=== PATIENT | male | born 1960 | race Caucasian/White ===

== ENCOUNTER 2017-11-24 18:44 | Emergency (ER) | payer SELFPAY ==
[2017-11-24 18:49] VITALS: BP 112/67; PULSE 88; TEMP 98; BMI 24.4
--- NOTE | 2017-11-24 20:10 | PDOC ---
History of Present Illness - General Chief Complaint: Pain, Acute Stated Complaint: STOMACH PAIN Time Seen by Provider: 11/24/17 19:43 - History of Present Illness Initial Comments: 11/24/17 20:00 CHIEF COMPLAINT: abdominal pain HISTORY OF PRESENT ILLNESS: 57 yo M with no known medical history (has not seen a PCP in "years") presents to ED with intermittent abdominal and R sided flank pain x "3-4 weeks." He states that the pain is intermittent and "just happens sometimes when I stand up." Patient also reports self-diagnosed b/l inguinal hernias and reports he has "sudden burning sensation to the right groin that come and goes." Patient also reports cough x 1 week with fever for 1 day approximately 5 days ago, now resolve. He denies any nausea, vomiting, diarrhea , rectal bleeding. PAST MEDICAL HISTORY: Denies past medical history FAMILY HISTORY: Denies SOCIAL HISTORY: Denies tobacco, alcohol, illicit drug use. SURGICAL HISTORY: Denies ALLERGIES: No known drug allergies REVIEW OF SYSTEMS General/Constitutional: Fever for one day, now resolved. Denies weakness, weight change. HEENT: Denies change in vision. Denies ear pain or discharge. Denies sore throat. Cardiovascular: Denies chest pain or shortness of breath. Respiratory: Cough x 1 week. Denies wheezing, or hemoptysis. Gastrointestinal: Intermittent epigastric abdominal pain, none at this time. Denies nausea, vomiting, diarrhea or constipation. Denies rectal bleeding. Genitourinary: Denies dysuria, frequency, or change in urination. Musculoskeletal: Intermittent R flank pain, none at this time. Denies joint or muscle swelling or pain. Denies neck or back pain. Skin: Denies rash. Neurologic: Denies headache, vertigo, loss of consciousness, or loss of sensation. PHYSICAL EXAM General Appearance: Well-appearing, appropriately dressed. No apparent distress. HEENT: EOMI, PERRLA. No conjunctival pallor. No photophobia, scleral icterus. Respiratory/Chest: Persistent dry cough. Lungs CTAB. No shortness of breath, chest tenderness, respiratory distress, accessory muscle use. No crackles, rales , rhonchi, stridor, wheezing, dullness Cardiovascular: RRR. S1, S2. Gastrointestinal/Abdominal: B/l inguinal hernias, larger on L side. Normal bowel sounds. Abdomen soft, non-distended. No tenderness or rebound tenderness. No organomegaly, pulsatile mass, guarding, hernia, hepatomegaly, splenomegaly. Musculoskeletal/Extremities: Normal inspection. FROM of all extremities, normal capillary refill. Pelvis Stable. No CVA tenderness. No tenderness to extremities, pedal edema, swelling, erythema or deformity. Integumentary: Appropriate color, dry, warm. No cyanosis, erythema, jaundice or rash Neurologic: controls operator molded goods II-XII intact. Fully oriented, alert. Appropriate mood/affect. Motor strength 5/5. No appreciable EOM palsy, facial droop or sensory deficit. 11/24/17 23:47 Past History - Past Medical History Allergies/Adverse Reactions: Allergies Allergy/AdvReac Type Severity Reaction Status Date / Time No Known Allergies Allergy Verified 11/24/17 18:45 Home Medications: Ambulatory Orders NK [No Known Home Medication] 11/24/17 COPD: No - Suicide/Smoking/Psychosocial Hx Smoking History: Current every day smoker Have you smoked in the past 12 months: Yes Number of Cigarettes Smoked Daily: 50 Information on smoking cessation initiated: Yes 'Breaking Loose' booklet given: 11/24/17 Hx Alcohol Use: No Drug/Substance Use Hx: No Substance Use Type: None *Physical Exam - Vital Signs Last Vital Signs Temp Pulse Resp BP Pulse Ox 98.0 F 88 18 112/67 100 11/24/17 18:45 11/24/17 18:45 11/24/17 18:45 11/24/17 18:45 11/24/17 18:45 ED Treatment Course - LABORATORY CBC & Chemistry Diagram: 11/24/17 20:10 11/24/17 20:10 Medical Decision Making - Medical Decision Making 11/24/17 20:10 57 yo M with no known medical history (has not seen a PCP in "years") presents to ED with intermittent abdominal pain x "3-4 weeks." -CBC, CMP, lipase -flu swab -EKG -Toradol IV 11/24/17 21:12 EKG - sinus rhythm with occasional premature ventricular complexes UA positive for 1+ blood. Will order spiral CT r/o kidney stones. Patient reassessed; at this time patient states he "feels fine" and has no pain other than when he coughs and feels pain to his abdomen. Patient is concerned "this is related to my hernias." Patient refused Toradol, states "why have it on board if I can handle the pain. " . 11/24/17 23:35 CT FINDINGS: The kidneys are normal in size without hydronephrosis, nephrolithiasis or perinephric stranding. There are no stones seen along the course of the ureters or within the bladder. The liver is enlarged measuring 20 cm in craniocaudal dimension with focal area of decreased attenuation in the left lobe along the fissure for the falciform ligament compatible with focal fat infiltration The gallbladder is decompressed The unenhanced spleen, pancreas and adrenal glands are grossly normal Small umbilical hernia containing fat The stomach is moderately distended with debris There is no bowel distention A normal appendix is visualized Colonic diverticulosis predominantly left colon without evidence of acute diverticulitis There is a large left inguinal hernia containing a loop of sigmoid colon without evidence of obstruction A small right inguinal hernia contains fat only No intra-abdominal free air, free fluid or loculated collections Read by: Martín Gómez MD Advised patient to establish care with PCP and cardiology. Advised patient to follow up with GI re: fatty liver disease and discuss elective hernia repair. Patient states Dr. 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 *DC/Admit/Observation/Transfer Diagnosis at time of Disposition: Fatty liver, Diverticulosis of colon, Umbilical hernia without obstruction or gangrene Inguinal hernia Qualifiers: Obstruction and gangrene presence: without obstruction or gangrene Laterality: bilateral Recurrence: not specified as recurrent Qualified Code(s): K40.20 - Bilateral inguinal hernia, without obstruction or gangrene, not specified as recurrent - Discharge Dispostion Disposition: HOME Condition at time of disposition: Stable Admit: No - Referrals - Patient Instructions Printed Discharge Instructions: DI for Groin Hernia, Nonalcoholic Fatty Liver Disease, DI for Diverticulosis, DI for Ventral Hernia Additional Instructions: As discussed, you must follow up with a primary care doctor for continued healthcare management. Follow up with your press operator printing at [place] as discussed. Please also follow up with a county agricultural agent for continued monitoring of your fatty liver disease and hernias. If you develop any severe pain or skin changes to the sites of your hernias, worsening abdominal pain with fever, chills, vomiting, or diarrhea, or any new or worsening symptoms, please return to the ER. - Post Discharge Activity
[2017-11-24 20:19] LABS: BASO % 0.4 % (0-2.0); EOS % 2.8 % (0-4.5); HEMATOCRIT 45.7 % (35.4-49); HEMOGLOBIN 15.2 GM/dL (11.7-16.9); LYMPH % 25.4 % (8-40); MCH 28.6 pg (25.7-33.7); MCHC 33.2 g/dl (32.0-35.9); MEAN CELL VOLUME 86.2 fl (80-96); MEAN PLT VOLUME 9.7 fl (7.5-11.1); MONO % 8.8 % (3.8-10.2); NEUT % 62.6 % (42.8-82.8); PLATELET COUNT 200 K/MM3 (134-434); RBC 5.31 M/mm3 (4.00-5.60); RDW 13.8 % (11.9-15.9); WHITE BLOOD COUNT 9.3 K/mm3 (4.0-10.0)
[2017-11-24] MEDS ORDERED: KETOROLAC TROMETHAMINE 30 MG/1 ML VIAL IVPUSH ONE (20:41)
[2017-11-24 20:47] LABS: ALBUMIN 3.6 g/dl (3.4-5.0); ANION GAP 7 (8-16); BLOOD UREA NITROGEN 17 mg/dL (7-18); CALCIUM 8.8 mg/dL (8.5-10.1); CHLORIDE 105 mmol/L (98-107); CO2 27 mmol/L (21-32); GLUCOSE,RANDOM 97 mg/dL (74-106); POTASSIUM 4.3 mmol/L (3.5-5.1); SGOT/AST 10 U/L (15-37); SGPT/ALT 21 U/L (12-78); SODIUM 139 mmol/L (136-145)
[2017-11-24 20:49] LABS: URINE APPEARANCE CLEAR; URINE BILIRUBIN NEGATIVE (NEGATIVE); URINE BLOOD 1+ (NEGATIVE); URINE COLOR YELLOW; URINE GLUCOSE (UA) NEGATIVE (NEGATIVE); URINE KETONE TRACE (NEGATIVE); URINE LEUK ESTERASE NEGATIVE (NEGATIVE); URINE NITRITE NEGATIVE (NEGATIVE); URINE PROTEIN NEGATIVE (NEGATIVE)
[2017-11-24 20:50] LABS: ALK PHOS 63 U/L (45-117); BILIRUBIN,TOTAL 0.3 mg/dL (0.2-1.0); TOT PROT 6.6 g/dl (6.4-8.2)
[2017-11-24 20:57] LABS: URINE HYALINE CAST 1 /lpf; URINE MUCUS FEW
[2017-11-24] MEDS ORDERED: KETOROLAC TROMETHAMINE 30 MG/1 ML VIAL ONE (21:11)
[2017-11-24] MEDS ORDERED: SODIUM CHLORIDE 0.9% 1000 ML INFUS.BAG IV ONE (21:32)
--- NOTE | 2017-11-25 16:07 | EKG ---
Test Reason : Blood Pressure : / mmHG Vent. Rate : 088 BPM Atrial Rate : 088 BPM P-R Int : 156 ms QRS Dur : 088 ms QT Int : 394 ms P-R-T Axes : 067 -04 050 degrees QTc Int : 476 ms SINUS RHYTHM WITH OCCASIONAL PREMATURE VENTRICULAR COMPLEXES OTHERWISE NORMAL ECG NO PREVIOUS ECGS AVAILABLE Confirmed by Nicola Bell ([id number]) on 11/25/2017 4:06:36 PM Referred By: Confirmed By:Nicola Bell
== END 2017-11-24 23:51 | disposition home or self-care (01) ==
LOC: JER 18:44
PROC: 3E0333Z Introduction of Anti-inflammatory into Peripheral Vein, Percutaneous Approach (ICD-10-PCS; principal; 2017-11-24)
DX: K40.20 Bilateral inguinal hernia, without obstruction or gangrene, not specified as recurrent (principal); K42.9 Umbilical hernia without obstruction or gangrene; K57.90 Diverticulosis of intestine, part unspecified, without perforation or abscess without bleeding; K76.0 Fatty (change of) liver, not elsewhere classified
CPT/HCPCS: 36415; 74176; 80053; 81003; 81015; 83690; 85025; 87086; 87804; 93005; 93010; 99283-25

== ENCOUNTER 2019-02-07 20:57 | Observation (INO) | payer OTHER ==
--- NOTE | 2019-02-07 22:01 | PDOC ---
History of Present Illness - General History Source: Patient Exam Limitations: No Limitations - History of Present Illness Initial Comments: 02/07/19 22:20 The patient is a 58 year old male with a significant past medical history of bilateral hernia removal who presents to the emergency department with 1 week of weakness and onset pelvic pain. The patient states he went to urgent care 2 days ago, was prescribed Z Pack (non compliant) and had an EKG done. The patient states he endorsed his pelvic pain while playing tennis and he feels like sleeping all day. The patient notes he had 3 episodes of vomiting with his last episode at 6mp tonight. The patient endorses decreased urinary flow and burning pain during urination which he describes as someone burning a cigarette on the area. Family history: Maternal parent had Afib before passing. The patient denies fever, chills, nausea, diarrhea or constipation. The patient denies frequency, urgency or hematuria. Allergies: NKDA Social history: Current everyday smoker (half a pack a day). Occasional alcohol use. PCP: hasn't seen in years <Parmjit Mariscal - Last Filed: 02/07/19 22:34> <Sakina Hoffman - Last Filed: 02/08/19 20:32> - General Chief Complaint: Weakness Stated Complaint: WEAKNESS Time Seen by Provider: 02/07/19 21:39 Past History <Parmjit Mariscal - Last Filed: 02/07/19 22:34> - Past Medical History COPD: No - Suicide/Smoking/Psychosocial Hx Smoking History: Unknown if ever smoked Have you smoked in the past 12 months: No Number of Cigarettes Smoked Daily: 50 Information on smoking cessation initiated: No 'Breaking Loose' booklet given: 11/24/17 Hx Alcohol Use: No Drug/Substance Use Hx: No Substance Use Type: None <Sakina Hoffman - Last Filed: 02/08/19 20:32> - Past Medical History Allergies/Adverse Reactions: Allergies Allergy/AdvReac Type Severity Reaction Status Date / Time No Known Allergies Allergy Verified 02/07/19 21:03 Home Medications: Ambulatory Orders NK [No Known Home Medication] 11/24/17 Review of Systems - Review of Systems Able to Perform ROS?: Yes Comments:: 02/07/19 22:22 GENERAL/CONSTITUTIONAL:(+) weakness. No fever or chills. HEAD, EYES, EARS, NOSE AND THROAT: No change in vision. No ear pain or discharge. No sore throat. CARDIOVASCULAR: No chest pain or shortness of breath. RESPIRATORY: No cough, wheezing, or hemoptysis. GASTROINTESTINAL:(+) vomiting. No nausea, diarrhea or constipation. GENITOURINARY:(+)dysuria.(+) decreased urinary flow. No frequency. MUSCULOSKELETAL: (+) pelvic pain. No joint or muscle swelling or pain. No neck or back pain. SKIN: No rash NEUROLOGIC: No headache, vertigo, loss of consciousness, or change in strength/ sensation. ENDOCRINE: No increased thirst. No abnormal weight change. HEMATOLOGIC/LYMPHATIC: No anemia, easy bleeding, or history of blood clots. ALLERGIC/IMMUNOLOGIC: No hives or skin allergy. <Parmjit Mariscal - Last Filed: 02/07/19 22:34> *Physical Exam - Vital Signs Last Vital Signs Temp Pulse Resp BP Pulse Ox 98.6 F 86 20 131/76 98 02/07/19 21:03 02/07/19 21:03 02/07/19 21:03 02/07/19 21:03 02/07/19 21:03 - Physical Exam Comments: 02/07/19 22:23 GENERAL: Awake, alert, and fully oriented, in no acute distress HEAD: No signs of trauma EYES: PERRLA, EOMI, sclera anicteric, conjunctiva clear ENT: Auricles normal inspection, hearing grossly normal, nares patent, oropharynx clear without exudates. Moist mucosa NECK: Normal ROM, supple, no lymphadenopathy, JVD, or masses LUNGS: Breath sounds equal, clear to auscultation bilaterally. No wheezes, and no crackles HEART: Regular rate and rhythm, normal S1 and S2, no murmurs, rubs or gallops ABDOMEN: (+) enlarged L sided inguinal hernia. (+)Left scrotum the size of a grapefruit.(+) Surrounding yeast infection on L inner thigh. Soft, nontender, normoactive bowel sounds. No guarding, no rebound. No masses EXTREMITIES: (+)Right upper back pain protruding deformity. Normal range of motion, no edema. No clubbing or cyanosis. No cords, erythema, or tenderness NEUROLOGICAL: Cranial nerves II through XII grossly intact. Normal speech, normal gait SKIN: Warm, Dry, normal turgor, no rashes or lesions noted. <Parmjit Mariscal - Last Filed: 02/07/19 22:34> - Vital Signs Last Vital Signs Temp Pulse Resp BP Pulse Ox 98.6 F 86 20 131/76 98 02/07/19 21:03 02/07/19 21:03 02/07/19 21:03 02/07/19 21:03 02/07/19 21:03 <Sakina Hoffman - Last Filed: 02/08/19 20:32> ED Treatment Course - LABORATORY CBC & Chemistry Diagram: 02/07/19 22:37 02/07/19 22:37 <Sakina Hoffman - Last Filed: 02/08/19 20:32> Medical Decision Making - Medical Decision Making 02/07/19 22:26 Pt has enlarged left scrotum; states that scrotum is larger than usual; states that he has decreasaed his PO intake and that when he eats, he is now vomiting. Pt has large ingunal hernia into the left scrotum. We will get a sono and a CT scan as needed. 02/08/19 00:39 Pt's chem is pending. If Bun/Cr are noraml I will get a CT scan with IV contrast to image the inguinal hernia. 02/08/19 01:55 Patient Name: PHAN DOMINGO THIS IS A PRELIMINARY REPORT FROM [facility] UNCLAIMED PROPERTY MANAGER DATE OF SERVICE: 2019-02-08 00:05:49 IMAGES: [id number] EXAM: Scrotal ultrasound with Doppler study of the bilateral testicles. HISTORY: Red swollen left testicle COMPARISON: None. FINDINGS: Right side: The right testicle and epididymis are homogeneous. No focal lesions are identified. There is positive arteriovenous Doppler blood flow to the right testicle. There are 2 right epididymal cysts measuring 3.2 mm and 2.5 mm respectively. There is a right hydrocele. Left side: The left testicle is homogeneous. No focal lesions are identified. There is positive arteriovenous Doppler blood flow to the left testicle. There is increased vascularity to the inferior portion of the left testicle. Given that the patient has a swollen left scrotum, the possibility of left orchitis is a consideration. However it not definitive on this scan. There is a left hydrocele as well as a left varicocele. (Limitation left side: Epididymal body not visualized). Note also made of a left inguinal hernia. Consider the possibility that swollen testicle is due to the hernia. CT would be helpful to evaluate for bowel obstruction due to the hernia. Impression: Left inguinal hernia. Further evaluation recommended as described above. Right hydrocele. Right epididymal cysts. Left hydrocele. Left varicocele. Some increased vascularity of the inferior left testicle relative to the right. Could represent infection but uncertain. THIS DOCUMENT HAS BEEN ELECTRONICALLY SIGNED 02/08/19 04:34 Patient Name: PHAN DOMINGO THIS IS A PRELIMINARY REPORT FROM [facility]CLAIMED PROPERTY MANAGER DATE OF SERVICE: 2019-02-08 02:33:32 IMAGES: [id number] EXAM: CT abdomen and pelvis with contrast HISTORY: Rule out inguinal hernia COMPARISON: None. FINDINGS Positive for a left inguinal hernia containing a loop of left/sigmoid colon. The hernia is incompletely included on the scan. However it is nonobstructing. There is also a right inguinal hernia containing no bowel. No large or small bowel obstruction. No free intraperitoneal air or free fluid. Negative for diverticulitis or colitis. Normal appendix. Normal liver. Contracted gallbladder. Normal spleen. Normal pancreas. Normal adrenal glands. Normal kidneys urinary tracts and urinary bladder. Osseous structures are intact. Impression: Nonobstructing left inguinal hernia. Otherwise no acute intra-abdominal abnormalities 02/08/19 20:32 Admitted for med surg obs. <Sakina Hoffman - Last Filed: 02/08/19 20:32> *DC/Admit/Observation/Transfer - Attestations Scribe Attestion: 02/07/19 22:24 Documentation prepared by Parmjit Mariscal, acting as medical scheduler for Sakina Hoffman MD <Parmjit Mariscal - Last Filed: 02/07/19 22:34> - Discharge Dispostion Decision to Admit order: Yes <Sakina Hoffman - Last Filed: 02/08/19 20:32> Diagnosis at time of Disposition: Inguinal hernia, Vomiting - Discharge Dispostion Disposition: HOME Condition at time of disposition: Guarded
[2019-02-07 22:57] LABS: BASO % 0.9 % (0-2.0); EOS % 3.7 % (0-4.5); HEMATOCRIT 43.5 % (35.4-49); HEMOGLOBIN 14.7 GM/dL (11.7-16.9); LYMPH % 21.8 % (8-40); MCH 29.6 pg (25.7-33.7); MCHC 33.7 g/dl (32.0-35.9); MEAN CELL VOLUME 87.7 fl (80-96); MEAN PLT VOLUME 9.3 fl (7.5-11.1); MONO % 8.7 % (3.8-10.2); NEUT % 64.9 % (42.8-82.8); PLATELET COUNT 201 K/MM3 (134-434); RBC 4.96 M/mm3 (4.00-5.60); RDW 14.2 % (11.9-15.9); WHITE BLOOD COUNT 7.9 K/mm3 (4.0-10.0)
[2019-02-07 23:00] LABS: PH,URINE 5.5 (5.0-8.0); URINE APPEARANCE CLEAR; URINE BILIRUBIN NEGATIVE (NEGATIVE); URINE COLOR YELLOW; URINE GLUCOSE (UA) NEGATIVE (NEGATIVE); URINE KETONE TRACE (NEGATIVE); URINE LEUK ESTERASE NEGATIVE (NEGATIVE); URINE NITRITE NEGATIVE (NEGATIVE); URINE PROTEIN NEGATIVE (NEGATIVE)
[2019-02-08 00:35] LABS: ALBUMIN 3.6 g/dl (3.4-5.0); ALK PHOS 64 U/L (45-117); BILIRUBIN,TOTAL 0.3 mg/dL (0.2-1); CALCIUM 9.5 mg/dL (8.5-10.1); CHLORIDE 108 mmol/L (98-107); CO2 27 mmol/L (21-32); SGPT/ALT 23 U/L (13-61); TOT PROT 6.6 g/dl (6.4-8.2)
[2019-02-08 01:05] LABS: INR 0.97 (0.83-1.09); PROTHROMBIN TIME (PATIENT) 11.4 SEC (9.7-13.0)
[2019-02-08] MEDS ORDERED: SODIUM CHLORIDE 0.9% 500 ML INFUS.BAG IV ONE (01:05)
[2019-02-08 01:28] LABS: ANION GAP 5 MMOL/L (8-16); BLOOD UREA NITROGEN 18 mg/dL (7-18); CREATININE 0.9 mg/dL (0.55-1.3); GLUCOSE,RANDOM 109 mg/dL (74-106); POTASSIUM 4.5 mmol/L (3.5-5.1); SGOT/AST 18 U/L (15-37); SODIUM 139 mmol/L (136-145)
[2019-02-08] MEDS ORDERED: ONDANSETRON 4 MG/2 ML VIAL IVPUSH PRN (05:13)
[2019-02-08] MEDS ORDERED: LACTATED RINGERS SOLUTION 1,000 ML IV SCH (05:15)
--- NOTE | 2019-02-08 05:20 | HP ---
CHIEF COMPLAINT: scrotal swelling and pain PCP: HISTORY OF PRESENT ILLNESS: Patient is a 58 y/o M w/ PMHx untreated b/l inguinal hernias p/w 1-2 days worsening swelling, scrotal pain in waves, a/w nausea and NBNB emesis possibly exacerbated by playing tennis. CT a/p and scrotal US confirm b/l non- obstructing hernias L>R. Pt had been scheduled for surgical evaluation but to this point had no plan for management. ROS otherwise negative. ER course was notable for: (1) All labs wnl (2) Vitals stable, afebrile (3) Imaging as per above Recent Travel: PAST MEDICAL HISTORY: As per [facility] PAST SURGICAL HISTORY: None Social History: Smoking: Alcohol: Drugs: Family History: Allergies No Known Allergies Allergy (Verified 02/07/19 21:03) HOME MEDICATIONS: Home Medications Medication Instructions Recorded NK [No Known Home Medication] 11/24/17 REVIEW OF SYSTEMS As per [facility] PHYSICAL EXAMINATION Vital Signs - 24 hr 02/07/19 21:03 Temperature 98.6 F Pulse Rate 86 Respiratory 20 Rate Blood Pressure 131/76 O2 Sat by Pulse 98 Oximetry (%) GENERAL: A&Ox3, NAD HEAD: Normal with no signs of trauma. EYES: Pupils equal, round and reactive to light, extraocular movements intact, sclera anicteric, conjunctiva clear. No lid lag. EARS, NOSE, THROAT: Ears normal, nares patent, oropharynx clear without exudates. Moist mucous membranes. NECK: Normal range of motion, supple without lymphadenopathy, JVD, or masses. LUNGS: Breath sounds equal, clear to auscultation bilaterally. No wheezes, and no crackles. No accessory muscle use. HEART: Regular rate and rhythm, normal S1 and S2 without murmur, rub or gallop. ABDOMEN: Soft, nontender, not distended, normoactive bowel sounds, no guarding, no rebound, no masses. No hepatomegaly or splenomegaly. UPPER EXTREMITIES: 2+ pulses, warm, well-perfused. No cyanosis. No clubbing. No peripheral edema. LOWER EXTREMITIES: 2+ pulses, warm, well-perfused. No calf tenderness. No peripheral edema. 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 Good eye contact. Appropriate mood and affect. SKIN: Warm, dry, normal turgor, no rashes or lesions noted, normal capillary refill. : Grossly swollen, edematous L hemiscrotum, non-tender at time of evaluation Laboratory Results - last 24 hr 02/07/19 02/07/19 02/07/19 22:37 22:37 22:37 WBC 7.9 RBC 4.96 Hgb 14.7 Hct 43.5 MCV 87.7 MCH 29.6 MCHC 33.7 RDW 14.2 Plt Count 201 MPV 9.3 Absolute Neuts (auto) 5.1 Neutrophils % 64.9 Lymphocytes % 21.8 Monocytes % 8.7 Eosinophils % 3.7 Basophils % 0.9 Nucleated RBC % 0 PT with INR INR Sodium 139 Potassium 4.5 Chloride 108 H Carbon Dioxide 27 Anion Gap 5 L BUN 18 Creatinine 0.9 Creat Clearance w eGFR 87.29 Random Glucose 109 H Calcium 9.5 Total Bilirubin 0.3 AST 18 ALT 23 Alkaline Phosphatase 64 Creatine Kinase 74 Troponin I < 0.02 Total Protein 6.6 Albumin 3.6 Urine Color Urine Appearance Urine pH Ur Specific [place] Urine Protein Urine Glucose (UA) Urine Ketones Urine Blood Urine Nitrite Urine Bilirubin Urine Urobilinogen Ur Leukocyte Esterase Blood Type Antibody Screen 02/07/19 02/07/19 02/07/19 22:39 23:13 23:13 WBC RBC Hgb Hct MCV MCH MCHC RDW Plt Count MPV Absolute Neuts (auto) Neutrophils % Lymphocytes % Monocytes % Eosinophils % Basophils % Nucleated RBC % PT with INR 11.40 INR 0.97 Sodium Potassium Chloride Carbon Dioxide Anion Gap BUN Creatinine Creat Clearance w eGFR Random Glucose Calcium Total Bilirubin AST ALT Alkaline Phosphatase Creatine Kinase Troponin I Total Protein Albumin Urine Color Yellow Urine Appearance Clear Urine pH 5.5 Ur Specific [place] 1.026 Urine Protein Negative Urine Glucose (UA) Negative Urine Ketones Trace H Urine Blood Negative Urine Nitrite Negative Urine Bilirubin Negative Urine Urobilinogen 1.0 Ur Leukocyte Esterase Negative Blood Type O POSITIVE Antibody Screen Negative ASSESSMENT/PLAN: #b/l inguinal hernias L>R -pre-operative labs done -Sx consulted -NPO -LR IVF -Zofran PRN -observe on med/surg Visit type - Emergency Visit Emergency Visit: Yes Care time: The patient presented to the Emergency Department on the above date and was hospitalized for further evaluation of their emergent condition. - New Patient This patient is new to me today: Yes Date on this admission: 02/08/19 - Critical Care Critical Care patient: No
--- NOTE | 2019-02-08 06:18 | PN ---
Teaching Attending Note Name of Resident: Arnav Medina ATTENDING PHYSICIAN STATEMENT I saw and evaluated the patient. I reviewed the resident's note and discussed the case with the resident. I agree with the resident's findings and plan as documented. SUBJECTIVE: This is a 58 year old man with a history of bilateral inguinal hernias who comes to the ED complaining of intermittent scrotal pain, nausea, and vomiting that started yesterday while playing tennis. Three days ago, he had gone to urgent care because he had a fever and a cough. Chest x-ray was reported to be normal. He was prescribed a Z-Alfredito which he has not started. OBJECTIVE: Vital Signs Period Temp Pulse Resp BP Sys/Long Pulse Ox Last 24 Hr 98.6 F-98.9 F 72-86 18-20 131-135/74-76 96-98 HEART: S1S2, RRR LUNGS: Clear ABDOMEN: Soft, non-tender, non-distended, normal BS, (+) left inguinal mass GENITOURINARY: (+) left scrotal mass EXTREMITIES: No edema Laboratory Tests 02/07/19 02/07/19 02/07/19 22:37 22:37 22:37 WBC 7.9 RBC 4.96 Hgb 14.7 Hct 43.5 MCV 87.7 MCH 29.6 MCHC 33.7 RDW 14.2 Plt Count 201 MPV 9.3 Absolute Neuts (auto) 5.1 Neutrophils % 64.9 Lymphocytes % 21.8 Monocytes % 8.7 Eosinophils % 3.7 Basophils % 0.9 Nucleated RBC % 0 PT with INR INR Sodium 139 Potassium 4.5 Chloride 108 H Carbon Dioxide 27 Anion Gap 5 L BUN 18 Creatinine 0.9 Creat Clearance w eGFR 87.29 Random Glucose 109 H Calcium 9.5 Total Bilirubin 0.3 AST 18 ALT 23 Alkaline Phosphatase 64 Creatine Kinase 74 Troponin I < 0.02 Total Protein 6.6 Albumin 3.6 Urine Color Urine Appearance Urine pH Ur Specific [place] Urine Protein Urine Glucose (UA) Urine Ketones Urine Blood Urine Nitrite Urine Bilirubin Urine Urobilinogen Ur Leukocyte Esterase Blood Type Antibody Screen 02/07/19 02/07/19 02/07/19 22:39 23:13 23:13 WBC RBC Hgb Hct MCV MCH MCHC RDW Plt Count MPV Absolute Neuts (auto) Neutrophils % Lymphocytes % Monocytes % Eosinophils % Basophils % Nucleated RBC % PT with INR 11.40 INR 0.97 Sodium Potassium Chloride Carbon Dioxide Anion Gap BUN Creatinine Creat Clearance w eGFR Random Glucose Calcium Total Bilirubin AST ALT Alkaline Phosphatase Creatine Kinase Troponin I Total Protein Albumin Urine Color Yellow Urine Appearance Clear Urine pH 5.5 Ur Specific [place] 1.026 Urine Protein Negative Urine Glucose (UA) Negative Urine Ketones Trace H Urine Blood Negative Urine Nitrite Negative Urine Bilirubin Negative Urine Urobilinogen 1.0 Ur Leukocyte Esterase Negative Blood Type O POSITIVE Antibody Screen Negative Current Medications Generic Name Dose Route Start Last Admin Trade Name Freq PRN Reason Stop Dose Admin Lactated Ringer's 1,000 mls @ 100 mls/hr 02/08/19 05:15 02/08/19 05:23 Lactated Ringers Solution IV 100 mls/hr ASDIR KEVIN Administration Ondansetron HCl 4 mg 02/08/19 05:13 Zofran Injection IVPUSH Q6H PRN NAUSEA ASSESSMENT AND PLAN: This is a 58 year old man with a history of bilateral inguinal hernias who presented to the ED with intermittent scrotal pain, nausea, and vomiting that started yesterday while playing tennis. 1. Bilateral inguinal hernias - No evidence of obstruction - Pain control - Zofran as needed for nausea - Surgery evaluation 2. Recent URI - No indication for antibiotics 3. Nicotine dependence - Smoking cessation discussed
[2019-02-08 09:54] VITALS: BP 128/90; PULSE 78
[2019-02-08 11:06] VITALS: TEMP 98; BMI 27.1
--- NOTE | 2019-02-08 11:22 | DS ---
Physical Exam: SUBJECTIVE: Patient seen and examined. states pain has been controlled. states scrotal swelling has not worsened. denies Cp, SOB, fever, chills, N/V/C/d OBJECTIVE: Vital Signs Period Temp Pulse Resp BP Sys/Long Pulse Ox Last 24 Hr 98.0 F-98.9 F 72-86 18-20 128-135/74-90 96-98 PHYSICAL EXAM GENERAL: The patient is awake, alert, and fully oriented, in no acute distress. HEAD: Normal with no signs of trauma. EYES: PERRL, extraocular movements intact, sclera anicteric, conjunctiva clear. ENT: Ears normal, nares patent, oropharynx clear without exudates, moist mucous membranes. NECK: Trachea midline, full range of motion, supple. LUNGS: Breath sounds equal, clear to auscultation bilaterally, no wheezes, no crackles, no accessory muscle use. HEART: Regular rate and rhythm, S1, S2 without murmur, rub or gallop. ABDOMEN: Soft, nontender, nondistended, normoactive bowel sounds, no guarding, no rebound, no hepatosplenomegaly, no masses. EXTREMITIES: 2+ pulses, warm, well-perfused, no edema. NEUROLOGICAL: Cranial nerves II through XII grossly intact. Normal speech, gait not observed. PSYCH: Normal mood, normal affect. SKIN: Warm, dry, normal turgor, no rashes or lesions noted. groin Large L scrotum with bowels, no tenderness unable to reduce. R inguinal hernia is reducible. LABS Laboratory Results - last 24 hr 02/07/19 02/07/19 02/07/19 22:37 22:37 22:37 WBC 7.9 RBC 4.96 Hgb 14.7 Hct 43.5 MCV 87.7 MCH 29.6 MCHC 33.7 RDW 14.2 Plt Count 201 MPV 9.3 Absolute Neuts (auto) 5.1 Neutrophils % 64.9 Lymphocytes % 21.8 Monocytes % 8.7 Eosinophils % 3.7 Basophils % 0.9 Nucleated RBC % 0 PT with INR INR Sodium 139 Potassium 4.5 Chloride 108 H Carbon Dioxide 27 Anion Gap 5 L BUN 18 Creatinine 0.9 Creat Clearance w eGFR 87.29 Random Glucose 109 H Calcium 9.5 Total Bilirubin 0.3 AST 18 ALT 23 Alkaline Phosphatase 64 Creatine Kinase 74 Troponin I < 0.02 Total Protein 6.6 Albumin 3.6 Urine Color Urine Appearance Urine pH Ur Specific [place] Urine Protein Urine Glucose (UA) Urine Ketones Urine Blood Urine Nitrite Urine Bilirubin Urine Urobilinogen Ur Leukocyte Esterase Blood Type Antibody Screen 02/07/19 02/07/19 02/07/19 22:39 23:13 23:13 WBC RBC Hgb Hct MCV MCH MCHC RDW Plt Count MPV Absolute Neuts (auto) Neutrophils % Lymphocytes % Monocytes % Eosinophils % Basophils % Nucleated RBC % PT with INR 11.40 INR 0.97 Sodium Potassium Chloride Carbon Dioxide Anion Gap BUN Creatinine Creat Clearance w eGFR Random Glucose Calcium Total Bilirubin AST ALT Alkaline Phosphatase Creatine Kinase Troponin I Total Protein Albumin Urine Color Yellow Urine Appearance Clear Urine pH 5.5 Ur Specific [place] 1.026 Urine Protein Negative Urine Glucose (UA) Negative Urine Ketones Trace H Urine Blood Negative Urine Nitrite Negative Urine Bilirubin Negative Urine Urobilinogen 1.0 Ur Leukocyte Esterase Negative Blood Type O POSITIVE Antibody Screen Negative 02/08/19 09:10 WBC RBC Hgb Hct MCV MCH MCHC RDW Plt Count MPV Absolute Neuts (auto) Neutrophils % Lymphocytes % Monocytes % Eosinophils % Basophils % Nucleated RBC % PT with INR INR Sodium Potassium Chloride Carbon Dioxide Anion Gap BUN Creatinine Creat Clearance w eGFR Random Glucose Calcium Total Bilirubin AST ALT Alkaline Phosphatase Creatine Kinase Troponin I Total Protein Albumin Urine Color Urine Appearance Urine pH Ur Specific [place] Urine Protein Urine Glucose (UA) Urine Ketones Urine Blood Urine Nitrite Urine Bilirubin Urine Urobilinogen Ur Leukocyte Esterase Blood Type O POSITIVE Antibody Screen HOSPITAL COURSE: Date of Admission:02/08/19 Date of Discharge: 02/08/19 Admitting diagnosis: B/L inguinal hernia r/o incarcerated hernia Pre hospital course 58 y/o M w/ PMHx untreated b/l inguinal hernias p/w 1-2 days worsening swelling , scrotal pain in waves, a/w nausea and NBNB emesis possibly exacerbated by playing tennis. CT a/p and scrotal US confirm b/l non-obstructing hernias L>R. Pt had been scheduled for surgical evaluation but to this point had no plan for management. ROS otherwise negative. Subsequent hospital course observed. CT abdomen and pelvis and u/s was done. did not show incarcerated hernia. seen by surgery. will need to f/u as outpatient for repair Minutes to complete discharge: 40 Discharge Summary Reason For Visit: VOMITING, INGUINAL HERNIA Current Active Problems Inguinal hernia (Acute) Vomiting (Acute) Condition: Guarded - Instructions Diet, Activity, Other Instructions: You were found to have a large hernia that is extending into your scrotum. This will require surgery. Please follow up [facility] Dr Rebolledo for surgery. His information has been provided You will need to find a primary care doctor to manage your care. If you do not have one information on one in the area has been provided. Call to make an appointment Return to the ER if you develop worsening scrotal pain, chest pain or fever ( temp >101) Referrals: Cody Lees MD [Staff Physician] - Pan Rebolledo MD [Staff Physician] - Disposition: HOME - Home Medications Comprehensive Discharge Medication List: Ambulatory Orders NK [No Known Home Medication] 11/24/17 This patient is new to me today: Yes Date on this admission: 02/08/19 Emergency Visit: Yes ED Registration Date: 02/08/19 Care time: The patient presented to the Emergency Department on the above date and was hospitalized for further evaluation of their emergent condition. Critical Care patient: No - Discharge Referral Referred to [facility] Med [facility].: No
--- NOTE | 2019-02-08 11:39 | EKG ---
Test Reason : Blood Pressure : / mmHG Vent. Rate : 084 BPM Atrial Rate : 084 BPM P-R Int : 172 ms QRS Dur : 100 ms QT Int : 370 ms P-R-T Axes : 068 007 059 degrees QTc Int : 437 ms SINUS RHYTHM WITH OCCASIONAL PREMATURE VENTRICULAR COMPLEXES POSSIBLE LEFT ATRIAL ENLARGEMENT BORDERLINE ECG WHEN COMPARED WITH ECG OF 24-NOV-2017 18:56, NO SIGNIFICANT CHANGE WAS FOUND Confirmed by ISAI GARCIA MD ([id number]) on 02/08/2019 11:39:17 AM Referred By: Confirmed By:ISAI GARCIA MD
--- NOTE | 2019-02-08 12:43 | CONSULT ---
- Consultation REQUESTING PROVIDER: Marilyn AGUIRRE CONSULT REQUEST: We have been asked to surgically evaluate this patient for ( specify). PCP:Becki Jung HISTORY OF PRESENT ILLNESS: PMHx: none PSHx: none Home Medications Medication Instructions Recorded NK [No Known Home Medication] 11/24/17 Allergies Allergy/AdvReac Type Severity Reaction Status Date / Time No Known Allergies Allergy Verified 02/07/19 21:03 PHYSICAL EXAM: GENERAL: Awake, alert, and fully oriented, in no acute distress. HEAD: Normal with no signs of trauma. EYES: PERRL, sclera anicteric, conjunctiva clear. NECK: Normal ROM, supple without lymphadenopathy, JVD, or masses. ABDOMEN: Soft, nontender, not distended, normoactive bowel sounds, no guarding, no rebound, no masses. No organomegaly. Reducible umbilical hernia; L>R inguinal hernias; left chronically incarcerated but not strangulated and right; reducible. GENITALIA: both testicles present. MUSCULOSKELETAL: Normal ROM at all joints. No bony deformities or tenderness. No CVA tenderness. UPPER EXTREMITIES: 2+ pulses, warm, well-perfused. No cyanosis. Cap refill <2 seconds. No peripheral edema. LOWER EXTREMITIES: 2+ pulses, warm, well-perfused. No calf tenderness. No peripheral edema. NEUROLOGICAL: Normal speech, gait not observed. PSYCH: Cooperative. Good eye contact. Appropriate mood and affect. SKIN: Warm, dry, normal turgor, no rashes or lesions noted. Vital Signs Temperature 98.0 F 02/08/19 09:00 Pulse Rate 78 02/08/19 09:54 Respiratory Rate 20 02/08/19 09:54 Blood Pressure 128/90 02/08/19 09:54 O2 Sat by Pulse Oximetry (%) 96 02/08/19 09:00 Lab Results WBC 7.9 K/mm3 (4.0-10.0) 02/07/19 22:37 RBC 4.96 M/mm3 (4.00-5.60) 02/07/19 22:37 Hgb 14.7 GM/dL (11.7-16.9) 02/07/19 22:37 Hct 43.5 % (35.4-49) 02/07/19 22:37 MCV 87.7 fl (80-96) 02/07/19 22:37 MCHC 33.7 g/dl (32.0-35.9) 02/07/19 22:37 RDW 14.2 % (11.9-15.9) 02/07/19 22:37 Plt Count 201 K/MM3 (134-434) 02/07/19 22:37 Sodium 139 mmol/L (136-145) 02/07/19 22:37 Potassium 4.5 mmol/L (3.5-5.1) 02/07/19 22:37 Chloride 108 mmol/L (98-107) H 02/07/19 22:37 Carbon Dioxide 27 mmol/L (21-32) 02/07/19 22:37 Anion Gap 5 MMOL/L (8-16) L 02/07/19 22:37 BUN 18 mg/dL (7-18) 02/07/19 22:37 Creatinine 0.9 mg/dL (0.55-1.3) 02/07/19 22:37 Random Glucose 109 mg/dL (74-106) H 02/07/19 22:37 Calcium 9.5 mg/dL (8.5-10.1) 02/07/19 22:37 Blood Type O POSITIVE 02/08/19 09:10 Antibody Screen Negative 02/07/19 23:13 INR 0.97 (0.83-1.09) 02/07/19 23:13 CT a/p and previous imaging reviewed. IMP: BIH's; umbilical hernia. PLAN: Outpatient f/u; will need colonoscopy and evaluation prior to hernia repair; d/w him s's and s's of incarceration and/or strangulation and what to do should that occur prior to any elective surgery; a/a/u by the patient and his partner.
== END 2019-02-08 13:37 | disposition home or self-care (01) ==
LOC: JER 20:57 → JERBED 02-08 04:35 → J5S 02-08 07:52
PROVIDERS: ADMIT Internal Medicine; ATTEND Internal Medicine
PROC: 3E033GC Introduction of Other Therapeutic Substance into Peripheral Vein, Percutaneous Approach (ICD-10-PCS; principal; 2019-02-08)
PROC: 3E0337Z Introduction of Electrolytic and Water Balance Substance into Peripheral Vein, Percutaneous Approach (ICD-10-PCS; 2019-02-08)
DX: K40.20 Bilateral inguinal hernia, without obstruction or gangrene, not specified as recurrent (principal); N43.3 Hydrocele, unspecified; N50.3 Cyst of epididymis; I86.1 Scrotal varices; F17.210 Nicotine dependence, cigarettes, uncomplicated
CPT/HCPCS: 36415; 74177-TC; 76870-TC; 80053; 81003; 82550; 84484; 85025; 85610; 86850; 86900; 86901; 87040; 87086; 93005; 93010; 99283-25; G0378

== ENCOUNTER 2019-05-28 05:41 | Day surgery (SDC) | payer OTHER ==
--- NOTE | 2019-05-05 14:27 | HP ---
HISTORY: A 58-year-old man who has had a rather longstanding left inguinal hernia. The hernia sac has become significantly large in size and on recent CT scanning contains a portion of his sigmoid colon. Patient also with a smaller right inguinal hernia as well as a small umbilical hernia. No underlying GI, , or respiratory complaints to suggest predisposition to hernia formation. PAST MEDICAL HISTORY: Nil. No history of hypertension, heart disease, diabetes, respiratory, renal, or hepatic insufficiency. PAST SURGICAL HISTORY: Nil. ALLERGIES: None known. REGULAR MEDICATIONS: None. SOCIAL HISTORY: Negative tobacco, negative alcohol. FAMILY HISTORY: Nil. REVIEW OF SYSTEMS: Nil. PHYSICAL EXAMINATION: On inspection, the patient has a massive left inguinal hernia stemming from the groin and filling his left scrotal compartment. There is also smaller, but obvious, right inguinal hernia. There is no obvious umbilical hernia. With the patient examined in the supine position, the small umbilical hernia can be appreciated in the depths of the umbilicus. The right inguinal hernia is reducible. The large left inguinal scrotal hernia can be partially, but not entirely, reduced. IMPRESSION: Large left inguinal scrotal hernia of significant duration. Patient is symptomatic on the left, asymptomatic, reducible, moderate-sized right inguinal hernia, small umbilical hernia. PLAN: After speaking with the patient at length, given the findings clinically, I do not feel the patient is an appropriate candidate for laparoscopic hernia surgery. We will proceed with open reduction and repair of chronically incarcerated left inguinal scrotal hernia with mesh. Patient understands he will need to have the right side fixed at some point subsequently. At this juncture, the umbilical findings are not pressing. Patient to be seen preoperatively by Dr. Cheryl Dimas. Please refer to her notes for those medical details. Issues that relate to the mesh have been reviewed with the patient at length. The potential complications including, but not limited to, infection, rejection, migration, and subsequent neurities. Patient understands and consents. MATHEUS QUINONES M.D. [id number]
[2019-05-28] MEDS ORDERED: TAMSULOSIN HCL 0.4 MG CAP ONE (06:28)
[2019-05-28] MEDS ORDERED: BUPIVACAINE HCL/PF 0.5% (5MG/ML) 10 ML VIAL ONE (07:14)
[2019-05-28] MEDS ORDERED: MIDAZOLAM HCL 2 MG/2 ML SINGLE DOSE VIAL ONE (07:22)
[2019-05-28 07:28] VITALS: BMI 26.0
[2019-05-28] MEDS ORDERED: SUCCINYLCHOLINE CHLORIDE 200 MG/10 ML VIAL ONE (07:59)
[2019-05-28] MEDS ORDERED: ROCURONIUM BROMIDE 50 MG/5 ML VIAL ONE ×2 (07:59→09:06)
[2019-05-28] MEDS ORDERED: PROPOFOL 20 ML ONE ×3 (07:59→08:18)
[2019-05-28] MEDS ORDERED: fentaNYL CITRATE 250 MCG/5 ML VIAL ONE (07:59)
[2019-05-28] MEDS ORDERED: KETOROLAC TROMETHAMINE 30 MG/1 ML VIAL ONE (08:15)
[2019-05-28] MEDS ORDERED: LIDOCAINE HCL/PF 2% SDV 5ML VIAL ONE (08:15)
[2019-05-28] MEDS ORDERED: ONDANSETRON 4 MG/2 ML VIAL ONE (08:15)
[2019-05-28] MEDS ORDERED: ceFAZolin SODIUM 1 GM VIAL ONE (08:15)
[2019-05-28] MEDS ORDERED: LIDOCAINE HCL 2% JELLY (5 ML/TUBE) ONE (08:15)
[2019-05-28] MEDS ORDERED: DEXAMETHASONE SOD PHOSPHATE 4 MG/1 ML VIAL ONE (08:15)
[2019-05-28] MEDS ORDERED: ePHEDrine SULFATE 50 MG/1 ML AMPULE ONE (08:18)
[2019-05-28] MEDS ORDERED: GLYCOPYRROLATE 0.2 MG/1 ML VIAL ONE (09:21)
[2019-05-28] MEDS ORDERED: NEOSTIGMINE METHYLSULFATE 0.5 MG/ML - 10 ML MDV ONE (09:21)
[2019-05-28 12:48] VITALS: TEMP 97.5
[2019-05-28] MEDS ORDERED: PROMETHAZINE HCL 25 MG/1 ML VIAL IVPUSH PRN (12:49)
[2019-05-28] MEDS ORDERED: oxyCODONE HCL 5 MG TABLET PO PRN ×2 (12:49)
[2019-05-28] MEDS ORDERED: ONDANSETRON 4 MG/2 ML VIAL IVPUSH PRN (12:49)
[2019-05-28 13:41] VITALS: BP 99/51; PULSE 64
--- NOTE | 2019-05-28 15:37 | OP ---
DATE OF OPERATION: 05/28/2019 PREOPERATIVE DIAGNOSIS: Incarcerated left inguinoscrotal hernia. POSTOPERATIVE DIAGNOSIS: Incarcerated sliding left inguinoscrotal hernia. PROCEDURE: Open repair of incarcerated sliding left inguinoscrotal hernia with mesh/intermediate wound closure (8 cm). OPERATING SURGEON: Maurizio Flores MD ROVING HAND: Herb Cabrera MD ANESTHESIA: General. HISTORY: A 58-year-old man who presents with a longstanding, large, left, chronically incarcerated, inguinoscrotal hernia containing colon. Indications, alternatives, possible complications reviewed. Consent obtained. PROCEDURE: With the patient in the supine position, under general anesthesia, the left groin and scrotal region were prepped with chlorhexidine. An 8-cm left groin incision was made between the left pubic tubercle and left anterior iliac spine. The incision was deepened into the subcutaneous space. All identified vessels in the subcutaneous space were clamped, divided and ligated. The external oblique aponeurosis was then incised in the direction of its fibers through the external ring. The underlying ilioinguinal nerve was identified and spared. The undersurface of the split external oblique aponeurosis was swept clean to the level of the pubic tubercle, where a Scar drain was placed around the cord structures and large sac. The cord was skeletonized off its cremasteric fibers and the large sac containing obvious bowel was freed from its attachment to the cord structures themselves. The sac was mobilized to the level of the preperitoneal fat and inferior epigastric vessels. A portion of the wall of the sac was made up by the colon as a sliding hernia. The entire hernia was reduced. The entire sac and contents were reduced. Now directing our attention to the inguinal floor, the attenuated transversalis fascia was split throughout its entire length. The tissues were further reduced and a large Davol plug placed in the preperitoneal space. It was tacked in place circumferentially with interrupted 2-0 Prolene sutures. Ultimately the attenuated transversalis fascia was then imbricated in 2 layers over the Davol plug, leaving the plug entirely in the preperitoneal space. This was accomplished with a continuous 2-0 Prolene suture, beginning at the pubic tubercle, progressing superiorly to the level of the internal ring, and returning to the pubic tubercle. An overlay mesh was then fashioned about the entire inguinal floor and tacked in place circumferentially with interrupted 2-0 Prolene sutures. The superior aspect of the mesh was keyholed and wrapped around the cord at the internal ring, buttressing the internal ring. The cord and nerve were returned to their anatomic positions. The overlying external oblique aponeurosis was then closed using a continuous 3-0 Vicryl suture. After adequate hemostasis, the wound was closed in layers. Cl's fascia was approximated using interrupted 3-0 chromic sutures. The subcuticular layer was approximated with interrupted 4-0 Biosyn suture. Skins were closed using 4-0 Biosyn in the subcuticular space in continuous fashion. Dermabond applied. Procedure terminated. Needle, sponge, instrument count correct. ESTIMATED BLOOD LOSS: Minimal. SPECIMEN: None. IMPLANT: Davol mesh plug. DRAINS: None. Patient tolerated the procedure. The procedure was terminated. Robyn [id number]
== END 2019-05-28 14:35 | disposition home or self-care (01) ==
LOC: FASU 05:41
PROVIDERS: ATTEND Surgery
PROC: 0YU60JZ Supplement Left Inguinal Region with Synthetic Substitute, Open Approach (ICD-10-PCS; principal; 2019-05-28 08:21)
DX: K40.30 Unilateral inguinal hernia, with obstruction, without gangrene, not specified as recurrent (principal)
CPT/HCPCS: 94760

== ENCOUNTER 2020-12-10 21:31 | Inpatient (IN) | payer OTHER ==
[2020-12-10] MEDS ORDERED: SODIUM CHLORIDE 0.9% 1000 ML INFUS.BAG IV ONE (22:40)
[2020-12-10] MEDS ORDERED: ACETAMINOPHEN 1000 MG/100 ML VIAL (NON FORMULARY) IVPB ONE (22:41)
[2020-12-10] MEDS ORDERED: ACETAMINOPHEN INJECTION 100 ML IVPB ONE (22:42)
[2020-12-10 22:51] LABS: BASO % 0.5 % (0-2.0); EOS % 2.5 % (0-4.5); HEMATOCRIT 46.8 % (35.4-49); HEMOGLOBIN 15.4 GM/dl (11.7-16.9); LYMPH % 14.7 % (8-40); MCH 28.6 pg (25.7-33.7); MCHC 32.9 g/dl (32.0-35.9); MEAN CELL VOLUME 86.8 fl (80-96); MONO % 6.7 % (3.8-10.2); NEUT % 75.6 % (42.8-82.8); PLATELET COUNT 240 K/MM3 (134-434); RBC 5.39 M/mm3 (4.00-5.60); RDW 12.5 % (11.9-15.9); WHITE BLOOD COUNT 9.3 K/mm3 (4.0-10.8)
[2020-12-10 23:08] LABS: ALBUMIN 4.2 g/dl (3.4-5.0); BILIRUBIN,TOTAL 0.6 mg/dl (0.2-1); CALCIUM 9.1 mg/dl (8.5-10); CREATININE 1.2 mg/dl (0.55-1.3); POTASSIUM 4.1 mmol/L (3.5-5.1); TOT PROT 6.7 g/dl (6.4-8.2)
[2020-12-10 23:13] LABS: INR 1.1 (0.82-1.09); PROTHROMBIN TIME (PATIENT) 12.2 SEC (10.2-13.0)
[2020-12-10] MEDS ORDERED: morphine CARPU-JECT 4 MG/1 ML DISP.SYRIN IVPUSH ONE (23:13)
[2020-12-10] MEDS ORDERED: morphine SULFATE 4 MG/ML VIAL ONE (23:16)
[2020-12-11 01:51] LABS: EPI CELLS 3 /uL (0-25.1); HYALINE CASTS 1 /uL (0-3.1); URINE APPEARANCE CLEAR; URINE BACTERIA 11 /uL (0-1359); URINE BILIRUBIN NEGATIVE (NEGATIVE); URINE COLOR YELLOW; URINE GLUCOSE (UA) NEGATIVE (NEGATIVE); URINE KETONE TRACE (NEGATIVE); URINE LEUK ESTERASE NEGATIVE (NEGATIVE); URINE NITRITE NEGATIVE (NEGATIVE); URINE PROTEIN NEGATIVE (NEGATIVE); URINE RBC 6 /uL (0-23.9); URINE UROBILINOGEN 0.2 mg/dL (0.2-1.0); URINE WBC 2 /uL (0-25.8)
[2020-12-11] MEDS ORDERED: LIDOCAINE VISCOUS 2% ORAL/TOP 20 ML UNIT-DOSE CUP ONE (02:43)
[2020-12-11] MEDS ORDERED: morphine SULFATE 4 MG/ML VIAL IVPUSH PRN (03:29)
[2020-12-11] MEDS ORDERED: MORPHINE SULFATE 2 MG/ML VIAL IVPUSH PRN (03:29)
[2020-12-11] MEDS ORDERED: SODIUM CHLORIDE 1,000 ML IV SCH (03:30)
[2020-12-11] MEDS ORDERED: ACETAMINOPHEN 1000 MG/100 ML VIAL (NON FORMULARY) IVPB PRN (03:31)
[2020-12-11] MEDS ORDERED: morphine SULFATE 4 MG/ML VIAL ONE (03:56)
[2020-12-11] MEDS ORDERED: ONDANSETRON 4 MG/2 ML VIAL IVPUSH ONE (04:23)
[2020-12-11] MEDS ORDERED: ONDANSETRON 4 MG/2 ML VIAL ONE (04:24)
[2020-12-11 05:50] VITALS: BMI 30.6
[2020-12-11] MEDS ORDERED: PIPERACILLIN/TAZOB 3.375 GM 3.375 GM in DEXTROSE 5%-WATER - 50 ML IVPB ONE (07:43)
[2020-12-11] MEDS ORDERED: PROPOFOL 20 ML ONE ×2 (08:06)
[2020-12-11] MEDS ORDERED: LIDOCAINE HCL/PF 2% SDV 5ML VIAL ONE (08:06)
[2020-12-11] MEDS ORDERED: MIDAZOLAM HCL 2 MG/2 ML SINGLE DOSE VIAL ONE (08:06)
[2020-12-11] MEDS ORDERED: DEXAMETHASONE SOD PHOSPHATE 4 MG/1 ML VIAL ONE ×2 (08:06→09:19)
[2020-12-11] MEDS ORDERED: SUCCINYLCHOLINE CHLORIDE 200 MG/10 ML SYRINGE ONE (08:07)
[2020-12-11] MEDS ORDERED: EPHEDRINE SULFATE/0.9% NACL/PF 50 MG/10 ML SYRINGE NR ONE (08:07)
[2020-12-11] MEDS ORDERED: ROCURONIUM BROMIDE 50 MG/5 ML SYRINGE ONE ×2 (08:17→10:52)
[2020-12-11] MEDS ORDERED: NEOSTIGMINE METHYLSULFATE 0.5 MG/ML - 10 ML MDV ONE (08:17)
[2020-12-11] MEDS ORDERED: DEXTROSE 5%-WATER - 50 ML IVPB ONE ×3 (08:49→18:16)
[2020-12-11] MEDS ORDERED: PIPERACILLIN/TAZOBACTAM 3.375 GM VIAL IVPB ONE ×3 (08:49→18:16)
[2020-12-11] MEDS ORDERED: ONDANSETRON 4 MG/2 ML VIAL IVPUSH PRN ×2 (09:58→12:36)
[2020-12-11] MEDS ORDERED: HYDROmorphone HCl 2 MG/ML VIAL IVPUSH PRN ×2 (09:59→10:00)
[2020-12-11] MEDS ORDERED: LACTATED RINGERS SOLUTION 1,000 ML IV SCH (10:00)
[2020-12-11] MEDS ORDERED: ACETAMINOPHEN 1000 MG/100 ML VIAL (NON FORMULARY) IVPB ONE (10:00)
[2020-12-11] MEDS ORDERED: BUPIVACAINE HCL/PF 0.5% (5 MG/ML) 30 ML VIAL IJ ONE ×2 (10:01→11:33)
[2020-12-11] MEDS ORDERED: DEXAMETHASONE SOD PHOSPHATE 4 MG/1 ML VIAL IVPUSH ONE ×2 (10:06→11:33)
[2020-12-11] MEDS ORDERED: KETOROLAC TROMETHAMINE 30 MG/1 ML VIAL ONE (11:19)
[2020-12-11] MEDS ORDERED: oxyCODONE HCL 5 MG TABLET PO PRN (11:59)
[2020-12-11] MEDS ORDERED: morphine CARPU-JECT 10 MG/1 ML DISP.SYRIN IVPB PRN (11:59)
[2020-12-11] MEDS ORDERED: ACETAMINOPHEN INJECTION 100 ML IVPB ONE (13:46)
[2020-12-11] MEDS: SODIUM CHLORIDE 1,000 ML IV SCH (14:05)
[2020-12-11] MEDS: PANTOPRAZOLE SODIUM 40 MG VIAL IVPUSH SCH (14:29)
[2020-12-11] MEDS: PIPERACILLIN/TAZOB 3.375 GM 3.375 GM in DEXTROSE 5%-WATER - 50 ML IVPB SCH (18:05)
[2020-12-11] MEDS: morphine SULFATE 4 MG/ML VIAL IVPB PRN (23:26)
[2020-12-12] MEDS ORDERED: DEXTROSE 5%-WATER - 50 ML IVPB ONE (02:17)
[2020-12-12] MEDS ORDERED: PIPERACILLIN/TAZOBACTAM 3.375 GM VIAL IVPB ONE (02:17)
[2020-12-12] MEDS: PIPERACILLIN/TAZOB 3.375 GM 3.375 GM in DEXTROSE 5%-WATER - 50 ML IVPB SCH (02:30)
[2020-12-12] MEDS: SODIUM CHLORIDE 1,000 ML IV SCH (06:43)
[2020-12-12 09:20] LABS: BASO % 0.1 % (0-2.0); EOS % 0.3 % (0-4.5); HEMATOCRIT 40.2 % (35.4-49); HEMOGLOBIN 13.5 GM/dL (11.7-16.9); LYMPH % 7.9 % (8-40); MCH 28.9 pg (25.7-33.7); MCHC 33.7 g/dl (32.0-35.9); MEAN CELL VOLUME 85.7 fl (80-96); MEAN PLT VOLUME 9.1 fl (7.5-11.1); MONO % 9.7 % (3.8-10.2); PLATELET COUNT 216 K/MM3 (134-434); RBC 4.69 M/mm3 (4.00-5.60); RDW 12.8 % (11.9-15.9); WHITE BLOOD COUNT 13.1 K/mm3 (4.0-10.0)
[2020-12-12 09:34] LABS: POTASSIUM 4.5 mmol/L (3.5-5.1)
[2020-12-12 09:39] LABS: ALBUMIN 3.4 g/dl (3.4-5.0); BLOOD UREA NITROGEN 13.8 mg/dL (7-18); CALCIUM 8.8 mg/dL (8.5-10.1)
[2020-12-12 09:40] LABS: MAGNESIUM 2.3 mg/dL (1.8-2.4)
[2020-12-12 09:42] LABS: PHOSPHOROUS 2.9 mg/dL (2.5-4.9)
[2020-12-12 09:44] LABS: BILIRUBIN,TOTAL 1.2 mg/dL (0.2-1)
[2020-12-12] MEDS: ENOXAPARIN NA (PORCINE) 40 MG/0.4 ML DISP.SYRIN SQ SCH (09:46)
[2020-12-12] MEDS: PANTOPRAZOLE SODIUM 40 MG VIAL IVPUSH SCH (09:46)
[2020-12-12] MEDS: ACETAMINOPHEN 1000 MG/100 ML VIAL (NON FORMULARY) IVPB PRN (16:44)
[2020-12-12] MEDS: morphine SULFATE 4 MG/ML VIAL IVPB PRN (20:42)
[2020-12-13] MEDS: ENOXAPARIN NA (PORCINE) 40 MG/0.4 ML DISP.SYRIN SQ SCH (09:10)
[2020-12-13 09:14] LABS: BASO % 0.4 % (0-2.0); EOS % 1.9 % (0-4.5); HEMATOCRIT 43.1 % (35.4-49); HEMOGLOBIN 14.7 GM/dL (11.7-16.9); LYMPH % 19.4 % (8-40); MCH 29.4 pg (25.7-33.7); MEAN CELL VOLUME 86.4 fl (80-96); MEAN PLT VOLUME 9.7 fl (7.5-11.1); MONO % 10.3 % (3.8-10.2); PLATELET COUNT 228 K/MM3 (134-434); RBC 4.99 M/mm3 (4.00-5.60); RDW 13.2 % (11.9-15.9)
[2020-12-13] MEDS: PANTOPRAZOLE SODIUM 40 MG VIAL IVPUSH SCH (09:37)
[2020-12-13 09:54] LABS: POTASSIUM 3.8 mmol/L (3.5-5.1)
[2020-12-13 10:21] LABS: BILIRUBIN,TOTAL 0.6 mg/dL (0.2-1)
[2020-12-13 10:32] LABS: ALBUMIN 3.8 g/dl (3.4-5.0); BLOOD UREA NITROGEN 15.5 mg/dL (7-18)
[2020-12-13 10:35] LABS: CREATININE 1.1 mg/dL (0.55-1.3); PHOSPHOROUS 2.5 mg/dL (2.5-4.9)
[2020-12-13 10:41] LABS: MAGNESIUM 2.1 mg/dL (1.8-2.4)
[2020-12-13 13:43] VITALS: BP 104/59; PULSE 125; TEMP 98.8
[2020-12-13] MEDS ORDERED: FUROSEMIDE 40 MG/4 ML INJECTABLE VIAL IVPUSH ONE (14:06)
[2020-12-13] MEDS: ACETAMINOPHEN 1000 MG/100 ML VIAL (NON FORMULARY) IVPB PRN (15:32)
== END 2020-12-13 19:44 | disposition home or self-care (01) | DRG 223 ==
LOC: FER 21:31 → J6S 12-11 04:55
PROVIDERS: ADMIT Hospitalist; ATTEND Student in an Organized Health Care Education/Training Program
PROC: 0D9670Z Drainage of Stomach with Drainage Device, Via Natural or Artificial Opening (ICD-10-PCS; 2020-12-11)
PROC: 0DP07UZ Removal of Feeding Device from Upper Intestinal Tract, Via Natural or Artificial Opening (ICD-10-PCS; 2020-12-11)
PROC: 0YU50JZ Supplement Right Inguinal Region with Synthetic Substitute, Open Approach (ICD-10-PCS; principal; 2020-12-11 09:00)
DX: K40.30 Unilateral inguinal hernia, with obstruction, without gangrene, not specified as recurrent (principal); K56.609 Unspecified intestinal obstruction, unspecified as to partial versus complete obstruction; D17.79 Benign lipomatous neoplasm of other sites
CPT/HCPCS: 36415; 71045-TC-FY; 74177-TC; 76870-TC; 80048; 80053; 81003; 83605; 83735; 84100; 85025; 85610; 86850; 86900; 86901; 88302-TC; 88304-TC; 93005; 94010; 94760; 99285-25; C9803; J0131; Q9967; U0003